=== PATIENT | male | born 2005 | race Hispanic/Latino ===

== ENCOUNTER 2024-10-25 19:29 | Emergency (ER) | payer OTHER, SELFPAY ==
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
[2024-10-25 19:21] VITALS: BP 118/75; PULSE 65; RESP 16; TEMP 37.2; O2SAT 99
[2024-10-25] MEDS: ONDANSETRON INJ 4 MG/2 ML VIAL IV PUSH (19:56)
[2024-10-25] MEDS: Please add drug allergy info to patient profile. 1 EACH XX (19:56)
[2024-10-25] MEDS: fentaNYL CITRATE INJ (*CRX) 100 MCG/2 ML VIAL 50 MCG IV PUSH (19:57)
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
[2024-10-25 22:18] VITALS: BP 130/74; PULSE 70; RESP 16; O2SAT 100
== END 2024-10-25 22:22 | disposition home or self-care (01) ==
PROVIDERS: Emergency Provider Emergency Medicine
DX: S63.502A Unspecified sprain of left wrist, initial encounter (principal); V23.49XA Other motorcycle driver injured in collision with car, pick-up truck or van in traffic accident, initial encounter
CPT/HCPCS: 70450; 72125; 73110; 96374; 96375; 99284; J2405; J3010